=== PATIENT | female | born 1980 | race Two or more races ===

== ENCOUNTER 2024-10-11 04:03 | Emergency (ER) | payer MEDICAID, SELFPAY ==
[2024-10-11 04:04] VITALS: BMI 24.7
[2024-10-11 04:09] VITALS: BP 109/75; PULSE 79; RESP 18; TEMP 36.4; O2SAT 95
--- NOTE | 2024-10-11 04:19 | PD.EDRME ---
Rapid Medical Screening Exam [facility] Arrival date/time: 10/11/24 04:03 44F with no significant PMH presents to ED with 1 hour of generalized itching, rash, and some facial swelling. Patient took ibuprofen and woke up like this, though she had had ibuprofen before. Patient denies new meds, foods, or hygiene products. Chief Complaint: Allergic Reaction Vital signs: Vital Signs Temperature 97.5 F 10/11/24 04:09 Pulse Rate 79 10/11/24 04:09 Respiratory Rate 18 10/11/24 04:09 Blood Pressure 109/75 10/11/24 04:09 Pulse Oximetry (%) 95 10/11/24 04:09 Oxygen Delivery Method Room Air 10/11/24 04:09
[2024-10-11] MEDS: SODIUM CHLORIDE 0.9% 1000 ML 1,000 ML 999 ML IV (04:46)
[2024-10-11] MEDS: MethylPREDNISolone SOD SUCC 62.5 MG/ML 2ML VIAL 125 MG IVP (04:47)
[2024-10-11] MEDS: FAMOTIDINE INJ 10 MG/ML VIAL 2 ML 20 MG IVP (04:47)
[2024-10-11] MEDS: DiphenhydrAMINE INJ 50 MG/ML VIAL IVP (04:48)
[2024-10-11 04:54] VITALS: BP 126/84; BP 131/88; PULSE 63; RESP 17; O2SAT 100
[2024-10-11 04:58] VITALS: PULSE 63
[2024-10-11 05:00] VITALS: BP 141/82; PULSE 68; RESP 14; O2SAT 100
--- NOTE | 2024-10-11 05:02 | EDNOTE_ITS ---
ED Allergic Reaction RME/HPI General Chief complaint: Allergic Reaction Stated complaint: ALLERGIC REACTION Arrival date/time: 10/11/24 04:03 44F with no significant PMH presents to ED with 1 hour of generalized itching, rash, and some facial swelling. Patient took ibuprofen and woke up like this, though she had had ibuprofen before. Patient denies new meds, foods, or hygiene products. Patient doesn't take any routine meds including GIANLUCA-inhibitors. Limitations: no limitations Related Data Home Medications ?Medication ?Instructions ?Recorded ?Confirmed ferrous sulfate 325 mg (65 mg 325 mg PO BIDWM #0 tabs 03/21/14 iron) tablet (Feosol) Previous Rx's ?Medication ?Instructions ?Recorded diphenhydramine HCl 25 mg capsule 25 mg PO Q8H PRN allergic symptoms 10/11/24 (Benadryl) #30 caps prednisone 10 mg tablet 30 mg (3 x 10 mg) PO BID 3 days 10/11/24 #18 tabs Allergies Allergy/AdvReac Type Severity Reaction Status Date / Time NKA* Allergy Uncoded 03/20/14 10:42 Review of Systems Review of Systems Systems Reviewed: All systems reviewed, normal except as documented Constitutional Constitutional: Reports system reviewed and no additional complaints, except as documented, Denies fever(s) and Denies headache(s) ENT Ears, Nose, Mouth, and Throat: Reports as per HPI, Denies disequilibrium, Denies headache(s) and Reports throat swelling Cardiovascular Cardiovascular: Reports system reviewed and no additional complaints, except as documented, Denies chest pain and Denies dyspnea Respiratory Respiratory: Reports system reviewed and no additional complaints, except as documented, Denies cough and Denies dyspnea Gastrointestinal Gastrointestinal: Reports system reviewed and no additional complaints, except as documented, Denies abdominal pain, Denies nausea and Denies vomiting Integumentary/Breasts Skin/Breast: Reports as per HPI, Reports pruritus and Reports rash Neurologic Neurologic: Reports system reviewed and no additional complaints, except as documented, Denies confusion, Denies disequilibrium and Denies headache(s) Psychiatric Psychiatric: Denies confusion Allergic/Immunologic Allergic/Immunologic: Reports throat swelling Past Medical History Social History SMOKING STATUS: Never smoker ED Exam General Limitations: Present no limitations General appearance: Present alert and in no apparent distress Head Head exam: Present atraumatic Eye Eye exam: Present normal appearance, PERRL and EOMI ENT ENT exam: Present mucous membranes moist Expanded ENT Exam Mouth exam: Present tongue swelling (mild) Neck Neck exam: Present normal inspection, full ROM and trachea midline Chest Chest inspection: Present normal inspection and symmetric chest wall rise Respiratory Respiratory exam: Present normal lung sounds bilaterally Cardiovascular Cardiovascular exam: Present regular rate, normal rhythm and normal heart sounds Abdominal Exam Abdominal exam: Present soft and normal bowel sounds Extremities Exam Extremities exam: Present normal inspection and full ROM Back Exam Back exam: Present normal inspection and full ROM Neurological Exam Neurological exam: Present alert, oriented X3 and CN II-XII intact Psychiatric Psychiatric exam: Present normal affect and normal mood Skin Skin exam: Present warm, dry, intact and normal color Course Quality Measures none Orders Category Date Time Status Mixer Operator Raw Salt Q4H START 00 Care 10/11/24 04:21 Completed Insert IV NOW Care 10/11/24 04:18 Completed DiphenhydrAMINE INJ [Benadryl Inj] Med 10/11/24 04:18 Discontinued 50 mg IVP X1 ONE Famotidine Inj [Pepcid Inj] Med 10/11/24 04:18 Discontinued 20 mg IVP X1 ONE MethylPREDNISolone.* [SoluMEDROL Inj] Med 10/11/24 04:18 Discontinued 125 mg IVP X1 ONE Sodium Chloride 0.9% 1000 ml [Ns] 1,000 ml Med 10/11/24 04:18 Discontinued IV 999 mls/hr Vital Signs Vital signs: Vital Signs Temperature 97.5 F 10/11/24 04:09 Pulse Rate 79 10/11/24 04:09 Respiratory Rate 18 10/11/24 04:09 Blood Pressure 109/75 10/11/24 04:09 Pulse Oximetry (%) 95 10/11/24 04:09 Oxygen Delivery Method Room Air 10/11/24 04:09 O2 at 95% on RA and WNLs Allergic Reaction MDM Narrative MDM Narrative:: 44F with no significant PMH presents to ED with 1 hour of generalized itching, rash, and some facial swelling. Patient took ibuprofen and woke up like this, though she had had ibuprofen before. Patient denies new meds, foods, or hygiene products. Patient doesn't take any routine meds including GIANLUCA-inhibitors. Physical exam reveals generalized urticarial rash, but clear lungs. Mild swelling of tongue, but clear oropharynx. Patient WOB normal. Patient is able to drink water without difficulty. Patient is afebrile, calm, and alert. Meds given. Upon reassessment, patient is feeling better. Care transferred to colleague. Patient discharged without further intervention by colleague. Patient data External records reviewed:: [facility] previous records Clinical information provided by:: patient Social determinants that could affect healthcare access:: none Patient has the following chronic illnesses:: none How is presenting disease/condition affected by chronic disease/condition?: no chronic disease Evaluation data The following diagnostics were reviewed and interpreted by me:: other (specify) (none) Lab and/or radiology exams considered but not ordered:: not ordered Interpretation Summary: n/a Medications / Prescriptions Medications or Prescriptions considered but not ordered:: ordered Medication administrations:: Medication Administration History Discontinued Medications Diphenhydramine HCl (Diphenhydramine Inj 50 Mg/Ml Vial) 50 mg IVP X1 ONE Stop: 10/11/24 04:19 Last Admin: 10/11/24 04:48 Dose: 50 mg Documented By: ISABELA Famotidine (Famotidine Inj 10 Mg/Ml Vial 2 Ml) 20 mg IVP X1 ONE Stop: 10/11/24 04:19 Last Admin: 10/11/24 04:47 Dose: 20 mg Documented By: ISABELA Sodium Chloride (Ns) 1,000 mls @ 999 mls/hr IV .Q1H1M ONE Stop: 10/11/24 05:18 Last Infusion: 10/11/24 06:00 Dose: Infused Documented By: Admin: 10/11/24 04:46 Dose: 999 mls/hr Documented By: ISABELA Methylprednisolone Sodium Succinate (Methylprednisolone Sod Succ 62.5 Mg/Ml 2ml Vial) 125 mg IVP X1 ONE Stop: 10/11/24 04:19 Last Admin: 10/11/24 04:47 Dose: 125 mg Documented By: ISABELA above Consultations Consultation(s) initiated? (list below): No Diagnosis Differential Diagnosis allergic reaction: anaphylaxis, allergic reaction, angioedema, contact dermatitis, adverse reaction to drug, viral enanthem and urticaria Most likely diagnosis given after review of the tests above:: allergic reaction Admission Indicated Admission indicated?: not indicated Admission Request Was there a request for admission?: No Disposition Plan Disposition Plan: Discharge Discharge Attestation Discharge Attestation: The patient and all family members were given an opportunity to ask questions and understood the discharge instructions. Discharge instructions specifically effects, indications for sooner follow up or return to the emergency department, and the expected course of current diagnosis. Patient condition: Stable Discharge Plan Plan Patient Disposition: HOME (Self Care) Disposition Comment: Stable Prescriptions/Referrals Prescriptions/Med Rec: New prednisone 10 mg tablet 30 mg PO BID 3 Days Qty: 18 0RF diphenhydramine HCl [Benadryl] 25 mg capsule 25 mg PO Q8H PRN (Reason: allergic symptoms) Qty: 30 0RF No Action ferrous sulfate [Feosol] 1 TAB tablet 325 mg PO BIDWM Qty: 0 Problem List Clinical Impression: Allergic reaction Patient/Caregiver Discharge Instructions Education Materials: ED Medicine Reaction: Allergic Additional Instructions: Please follow up with your primary care doctor in the next 24-48hrs for any worsening symptoms return here immediately Print Language: Niuean Stand Alone Forms: [employer] Award Info., Patient Portal Info Letter PA/NAIL TECHNICIAN TEACHER Supervising Physician PA/NAIL TECHNICIAN TEACHER Supervising Physician: Dr Castro
[2024-10-11 06:00] VITALS: BP 115/82; PULSE 74; RESP 16; O2SAT 100
[2024-10-11 06:40] VITALS: BP 105/74; PULSE 82; RESP 20; O2SAT 98
== END 2024-10-11 07:10 | disposition home or self-care (01) ==
LOC: SERX 06:48
PROVIDERS: Emergency Provider Emergency Medicine
DX: L50.0 Allergic urticaria (principal); R22.0 Localized swelling, mass and lump, head
CPT/HCPCS: 96361; 96374; 96375; 99284; J1200; J2919; J3490; J7030

== ENCOUNTER 2024-11-13 08:49 | Emergency (ER) | payer MEDICAID, SELFPAY ==
[2024-11-13 08:50] VITALS: BMI 25.7
[2024-11-13 09:16] VITALS: BP 117/60; PULSE 66; RESP 18; TEMP 36.9; O2SAT 98; BMI 25.7
--- NOTE | 2024-11-13 09:31 | PD.EDRME ---
Rapid Medical Screening Exam [facility] Arrival date/time: 11/13/24 08:49 44-year-old female presents emerged department with complaints of left eye pain x 2 weeks Chief Complaint: Eye Problems Vital signs: Vital Signs Temperature 98.5 F 11/13/24 09:16 Pulse Rate 66 11/13/24 09:16 Respiratory Rate 18 11/13/24 09:16 Blood Pressure 117/60 11/13/24 09:16 Pulse Oximetry (%) 98 11/13/24 09:16 Oxygen Delivery Method Room Air 11/13/24 09:16
[2024-11-13 10:31] VITALS: BP 118/79; PULSE 56; RESP 15; TEMP 36.7; O2SAT 99
--- NOTE | 2024-11-13 10:33 | EKG_ITS ---
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
[2024-11-13 12:33] VITALS: BP 117/75; PULSE 57; RESP 16; TEMP 36.7; O2SAT 97
[2024-11-13] MEDS: KETOROLAC INJ 60 MG/2 ML VIAL 30 MG IM (12:37)
[2024-11-13] MEDS: TETRACAINE PF OP SOL 0.5% 4 ML DRPETTE 1 DROP LEFT EYE (12:39)
[2024-11-13] MEDS: FLUORESCEIN SOD 1 MG STRP LEFT EYE (12:39)
[2024-11-13 14:03] LABS: C-Reactive Protein < 0.4 mg/dL (0.0-0.9)
[2024-11-13 14:06] VITALS: BP 114/75; PULSE 52; RESP 96; O2SAT 96
--- NOTE | 2024-11-13 14:20 | PD.EDEYE ---
ED Eye Problem RME/HPI General Chief complaint: Eye Problems Stated complaint: LEFT EYE PAIN WITH REDNESS AND HEADACHE Arrival date/time: 11/13/24 08:49 RME / HPI RME / HPI Narrative: 11/13/24 08:49 44-year-old female presents emerged department with complaints of left eye pain x [address] FELI SORENSON ED EVALUATION 44 year old female presents to the ED for evaluation of left eye pain and redness beginning 2 weeks ago. Pain described as throbbing in sensation that has remained constant since onset. Accompanied by left temporal pain, photophobia, and blurred vision in the left eye. Reportedly consulted her PCP who advised she sees an hot stamp operator which she did last week. States she was prescribed Tobradex eyes drop which she has used without improvement. Denies any known injuries/trauma, or discharge. Related Data Home Medications ?Medication ?Instructions ?Recorded ?Confirmed ferrous sulfate 325 mg (65 mg 325 mg PO BIDWM #0 tabs 03/21/14 iron) tablet (Feosol) Previous Rx's ?Medication ?Instructions ?Recorded diphenhydramine HCl 25 mg capsule 25 mg PO Q8H PRN allergic symptoms 10/11/24 (Benadryl) #30 caps prednisone 20 mg tablet 60 mg PO QDAY #2 tabs 11/13/24 Allergies Allergy/AdvReac Type Severity Reaction Status Date / Time No Known Allergies Allergy Verified 11/13/24 08:54 Review of Systems Review of Systems Narrative Review of Systems: Gen: No fever, no chills EYES: No discharge, +visual changes, + pain, +redness HEENT: +left temporal pain. No ear pain, no congestion, no sore throat PULM: no shortness of breath, no cough, no congestion CV: No chest pain, no palpitations, no chest tightness GI: No nausea, no vomiting, no diarrhea, no pain, no constipation : No frequency, no urgency,? no dysuria Musc/skel: No joint pain, no back pain Skin: No rash, no ecchymosis, no lesions Neuro: No weakness, + headache Past Medical History Past Medical History CARDIAC: Negative Congestive Heart Failure RESPIRATORY: Negative Chronic Obstructive Pulmonary Disease (COPD) GENITOURINARY: Negative Renal Disease ENDOCRINE: Positive Hypothyroidism; Negative Diabetes Mellitus Type 1 or Diabetes Mellitus Type 2 Social History SMOKING STATUS: Never smoker ED Exam Narrative Physical exam: GENERAL APPEARANCE: AxOx4, no obvious distress, nontoxic appearing HEENT: NC, AT. The left latter-day is exquisitely tender, couldn't discern temporal pulse on either left or right. MMM. EOMI, clear conjunctiva, oropharynx clear. NECK: Supple without lymphadenopathy. No stiffness or restricted ROM. HEART: Normal rate and regular rhythm. LUNGS: CTAB, moving air well. EXTREMITIES: Without cyanosis, clubbing or edema. MUSCULOSKELETAL: FROM of all major joints, no chest tenderness NEUROLOGICAL: Grossly nonfocal. Alert and oriented, moving all 4 extremities. CN not formally tested but appear grossly intact. Skin: Warm and dry without any rash. OS OD Visual acuity 20/100 20/50 Pupil Equal, round, sluggish to light Equal, round, reactive to light EOM Intact Intact Visual field x4 x4 Inspection Erythema to the lateral aspect of the sclera Normal Slit-lamp No cells, no flares, no signs of anterior chamber inflammation Normal exam IOP 17 14 Fluorescein No uptake No uptake Fundo No ulcer, no corneal abrasion No abnormal findings Course Quality Measures none Orders Category Date Time Status EKG (ED ONLY) *Do not use* NOW Care 11/13/24 10:33 Completed Slit Lamp to Bedside X1 Care 11/13/24 11:27 Completed Tonometer to Bedside X1 Care 11/13/24 11:29 Completed Visual Acuity NOW Care 11/13/24 12:18 Completed Jules Lamp to Bedside X1 Care 11/13/24 09:31 Completed EKG (ED Only) Stat Exams 11/13/24 10:33 Draft CRP [C-Reactive Protein] Stat Lab 11/13/24 13:03 Completed ESR [Sed Rate (ESR)] Stat Lab 11/13/24 13:03 Completed Fluorescein Sodium [[id number]] Med 11/13/24 09:31 Discontinued 1 mg LEFT EYE X1 ONE Ketorolac Inj [Toradol Inj] Med 11/13/24 12:18 Discontinued 30 mg IM X1 ONE TETRACAINE Op Charisse 0.5% [Pontocaine Op Charisse 0.5%] Med 11/13/24 09:31 Discontinued 1 drop LEFT EYE X1 ONE predniSONE Med 11/13/24 15:56 Discontinued 60 mg PO X1 ONE Vital Signs Vital signs: Vital Signs Temperature 98.5 F 11/13/24 09:16 Pulse Rate 66 0203/25 09:16 Respiratory Rate 18 11/13/24 09:16 Blood Pressure 117/60 11/13/24 09:16 Pulse Oximetry (%) 98 11/13/24 09:16 Oxygen Delivery Method Room Air 11/13/24 09:16 Pulse ox is 98% on room air which is adequate. Eye MDM Narrative MDM Narrative:: Luz Camarillo am scribing for and in the presence of Dr. Kim. Patient data External records reviewed:: [facility] previous records (I reviewed ED visit on 10/11/2024) Clinical information provided by:: patient Social determinants that could affect healthcare access:: none Patient has the following chronic illnesses:: None How is presenting disease/condition affected by chronic disease/condition?: no chronic disease Evaluation data The following diagnostics were reviewed and interpreted by me:: EKG tracing(s) (Sinus bradycardia, rate 48, no acute ST or T-wave changes, no STEMI. ) Lab and/or radiology exams considered but not ordered:: None Interpretation Summary: As noted above Medications / Prescriptions Medications or Prescriptions considered but not ordered:: None Medication administrations:: Medication Administration History Discontinued Medications Fluorescein Sodium (Fluorescein Sod 1 Mg Strp) 1 mg LEFT EYE X1 ONE Stop: 11/13/24 09:32 Last Admin: 11/13/24 12:39 Dose: 1 mg Documented By: SHARRI Comments: admin by Dr Kim Ketorolac Tromethamine (Ketorolac Inj 60 Mg/2 Ml Vial) 30 mg IM X1 ONE Stop: 11/13/24 12:19 Last Admin: 11/13/24 12:37 Dose: 30 mg Documented By: SHARRI Prednisone (Prednisone 20 Mg Tablet) 60 mg PO X1 ONE Stop: 11/13/24 15:57 Last Admin: 11/13/24 16:15 Dose: 60 mg Documented By: SHARRI Tetracaine HCl (Tetracaine Pf Op Charisse 0.5% 4 Ml Drpette) 1 drop LEFT EYE X1 ONE Stop: 11/13/24 09:32 Last Admin: 11/13/24 12:39 Dose: 1 drop Documented By: SHARRI Comments: admin by Dr Kim See above Consultations Consultation(s) initiated? (list below): No Diagnosis Eye Problem Differential Diagnosis: corneal abrasion, conjunctivitis, acute iritis, hyphema, periorbital cellulitis, subconjunctival hemorrhage, glaucoma and corneal ulcer Most likely diagnosis given after review of the tests above:: Headache Acute eyepain Admission Indicated Admission indicated?: not indicated Admission Request Was there a request for admission?: No Disposition Plan Disposition Plan: Discharge Discharge Attestation Discharge Attestation: The patient and all family members were given an opportunity to ask questions and understood the discharge instructions. Discharge instructions specifically effects, indications for sooner follow up or return to the emergency department, and the expected course of current diagnosis. Patient condition: Stable Discharge Plan Plan Patient Disposition: HOME (Self Care) Prescriptions/Referrals Prescriptions/Med Rec: New prednisone 20 mg tablet 60 mg PO QDAY Qty: 2 0RF Taper: Prednisone Taper 60 mg DAILY for 2 Days and 0 Hour No Action ferrous sulfate [Feosol] 1 TAB tablet 325 mg PO BIDWM Qty: 0 diphenhydramine HCl [Benadryl] 25 mg capsule 25 mg PO Q8H PRN (Reason: allergic symptoms) Qty: 30 0RF Referrals: Williams Richmond MD [Primary Care Provider] - In 1 week Problem List Clinical Impression: Headache, Acute eye pain Patient/Caregiver Discharge Instructions Education Materials: Self-Care for Headaches Additional Instructions: La receta se envi? a la farmacia, rec?era hoy y comience lennon primera dosis ma?darrius por la ma?darrius. ?fatoumata le entregar? los medicamentos para danielle ma?darrius sylvia y el d?a siguiente mi?rcoles. Regrese al departamento de emergencias el mi?rcoles para que el Dr. Kim lo yue y lo revise nuevamente. Si kevin s?ntomas empeoran o lennon visi?n empeora antes de izaiah fecha, regrese al departamento de emergencias de inmediato. Print Language: Turkish Stand Alone Forms: [employer] Award Info., Patient Portal Info Letter
[2024-11-13 15:11] LABS: Sed Rate (ESR) 41 mm/hr (0-20)
[2024-11-13] MEDS: predniSONE 20 MG TABLET 60 MG PO (16:15)
[2024-11-13 16:17] VITALS: BP 115/71; PULSE 60; RESP 14; TEMP 36.7; O2SAT 97
[2024-11-13 17:58] VITALS: BP 114/82; PULSE 58; RESP 20
== END 2024-11-13 17:58 | disposition home or self-care (01) ==
PROVIDERS: Emergency Provider Emergency Medicine; PCP Family Medicine
DX: H57.12 Ocular pain, left eye (principal); R51.9 Headache, unspecified; R00.1 Bradycardia, unspecified
CPT/HCPCS: 36415; 85652; 86140; 93005; 96372; 99283; J1885; J7512

== ENCOUNTER 2025-05-13 07:15 | Emergency (ER) | payer MEDICAID, SELFPAY ==
[2025-05-13 07:18] VITALS: BMI 23.0
[2025-05-13 07:34] VITALS: BP 107/72; PULSE 60; RESP 18; TEMP 36.9; O2SAT 98
--- NOTE | 2025-05-13 07:36 | EKG_ITS ---
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
--- NOTE | 2025-05-13 07:42 | XR_ITS ---
Examination: PA lateral chest 2 views Technique: Upright PA lateral chest 2 views Date and time: April 12, 2025, 0806 hrs., Comparison September 20, 2009. Indications: Chest pain 15 days. Findings: Normal heart size Mild increased markings at the right lung base No pulmonary edema. The osseous structures are intact Impression: Atelectasis versus early pneumonia at the right lung base, the appearance should be clinically correlated.
--- NOTE | 2025-05-13 08:23 | PD.EDCHEST ---
ED Chest Pain RME/HPI General Chief Complaint: Chest Pain Stated Complaint: L) SIDE CHEST PAIN, HEADACHE X 15 DAYS Time Seen by Provider: 05/13/25 07:24 Source: patient Arrival date/time: 05/13/25 07:15 45-year-old female with no known medical history presents to the emergency room with a chief complaint of left-sided sternal chest pain and a headache x 15 days Mode of arrival: ambulatory Limitations: no limitations Related Data Home Medications ?Medication ?Instructions ?Recorded ?Confirmed ferrous sulfate 325 mg (65 mg 325 mg PO BIDWM #0 tabs 03/21/14 iron) tablet (Feosol) Previous Rx's ?Medication ?Instructions ?Recorded diphenhydramine HCl 25 mg capsule 25 mg PO Q8H PRN allergic symptoms 10/11/24 (Benadryl) #30 caps prednisone 20 mg tablet 60 mg PO QDAY #2 tabs 11/13/24 doxycycline monohydrate 100 mg 100 mg PO BID 7 days #14 caps 05/13/25 capsule Allergies Allergy/AdvReac Type Severity Reaction Status Date / Time No Known Allergies Allergy Verified 05/13/25 07:27 Review of Systems Review of Systems Systems Reviewed: All systems reviewed, normal except as documented Constitutional Constitutional: Reports system reviewed and no additional complaints, except as documented, Denies fatigue, Denies fever(s), Denies headache(s) and Denies weakness Eyes Eyes: Reports system reviewed and no additional complaints, except as documented, Denies blurry vision and Denies change in vision ENT Ears, Nose, Mouth, and Throat: Reports system reviewed and no additional complaints, except as documented, Denies otalgia, Denies headache(s), Denies nasal congestion, Denies throat swelling and Denies vertigo Cardiovascular Cardiovascular: Reports system reviewed and no additional complaints, except as documented, Reports chest pain, Denies dyspnea and Denies dyspnea on exertion Respiratory Respiratory: Reports system reviewed and no additional complaints, except as documented, Denies chest congestion, Denies cough, Denies dyspnea, Denies dyspnea on exertion and Denies wheezing Gastrointestinal Gastrointestinal: Reports system reviewed and no additional complaints, except as documented, Denies abdominal pain, Denies cramping, Denies nausea and Denies vomiting Genitourinary Genitourinary: Reports system reviewed and no additional complaints, except as documented Musculoskeletal Musculoskeletal: Reports system reviewed and no additional complaints, except as documented and Denies back pain Integumentary/Breasts Skin/Breast: Reports system reviewed and no additional complaints, except as documented and Denies wounds Neurologic Neurologic: Reports system reviewed and no additional complaints, except as documented, Denies confusion, Denies headache(s), Denies lack of coordination, Denies vertigo and Denies weakness Psychiatric Psychiatric: Reports system reviewed and no additional complaints, except as documented, Denies anxiety, Denies confusion, Denies depression, Denies paranoia, Denies suicidal ideation and Denies tactile hallucinations Endocrine Endocrine: Reports system reviewed and no additional complaints, except as documented and Denies fatigue Hematologic/Lymphatic Hematologic/Lymphatic: Reports system reviewed and no additional complaints, except as documented and Denies lymphadenopathy Allergic/Immunologic Allergic/Immunologic: Reports system reviewed and no additional complaints, except as documented, Denies throat swelling, Denies urticaria and Denies wheezing ED Exam General Limitations: Present no limitations General appearance: Present alert and in no apparent distress Head Head exam: Present atraumatic Eye Eye exam: Present normal appearance, PERRL and EOMI ENT ENT exam: Present normal exam, normal oropharynx and mucous membranes moist Neck Neck exam: Present normal inspection, full ROM and trachea midline Chest Chest inspection: Present normal inspection and symmetric chest wall rise Respiratory Respiratory exam: Present normal lung sounds bilaterally; Absent respiratory distress, wheezes, stridor, accessory muscle use or prolonged expiratory phase Cardiovascular Cardiovascular exam: Present regular rate, normal rhythm, normal heart sounds, +S1 and +S2; Absent bradycardia, tachycardia or irregular rhythm Abdominal Exam Abdominal exam: Present soft and normal bowel sounds; Absent distention, tenderness or guarding Extremities Exam Extremities exam: Present normal inspection and full ROM Back Exam Back exam: Present normal inspection and full ROM Neurological Exam Neurological exam: Present alert, oriented X3 and CN II-XII intact Psychiatric Psychiatric exam: Present normal affect and normal mood Skin Skin exam: Present warm, dry, intact and normal color Course Quality Measures none Orders Category Date Time Status EKG (ED ONLY) *Do not use* NOW Care 05/13/25 07:36 Completed EKG (ED Only) Stat Exams 05/13/25 07:36 Draft XR chest 2V Stat Exams 05/13/25 07:42 Completed B-Type Natriuretic Peptide Stat Lab 05/13/25 08:45 Completed CBC Stat Lab 08/03/25 08:45 Completed Comprehensive Metabolic Panel Stat Lab 05/13/25 08:45 Completed Troponin I Stat Lab 05/13/25 08:45 Completed Vital Signs Vital signs: Vital Signs Temperature 98.5 F 05/13/25 07:34 Pulse Rate 60 05/13/25 07:34 Respiratory Rate 18 05/13/25 07:34 Blood Pressure 107/72 05/13/25 07:34 Pulse Oximetry (%) 98 05/13/25 07:34 Oxygen Delivery Method Room Air 05/13/25 07:34 O2 saturation 98% within normal limits Chest Pain MDM Narrative MDM Narrative:: 45-year-old female with no known medical history presents to the emergency room with a chief complaint of left-sided sternal chest pain and a headache x 15 days Patient is hemodynamically stable and in no apparent distress Physical examination shows clear bilateral lung sounds there is no wheezing stridor or any abnormal breath sounds Patient has a strong and regular rhythm S1 and S2 noted. No JVD noticed EKG shows sinus bradycardia. Prior to discharge a posterior show 60 bpm X-ray shows early pneumonia antibiotics were given to the patient Patient was discharged and educated to follow-up with primary care provider in the next 24 to 48 hours and return to the emergency room for any evidence of worsening signs or symptoms Patient data External records reviewed:: [facility] previous records Clinical information provided by:: patient Social determinants that could affect healthcare access:: none Patient has the following chronic illnesses:: No chronic illness How is presenting disease/condition affected by chronic disease/condition?: no chronic disease Evaluation data The following diagnostics were reviewed and interpreted by me:: lab results and radiology exam(s) Lab and/or radiology exams considered but not ordered:: Labs and radiology exams considered in order Interpretation Summary: Chest [id number]: Normal heart size Mild increased markings at the right lung base No pulmonary edema. The osseous structures are intact Impression: Atelectasis versus early pneumonia at the right lung base, the appearance should be clinically correlated. Medications / Prescriptions Medications or Prescriptions considered but not ordered:: Medication given Medication administrations:: Medication not given Consultations Consultation(s) initiated? (list below): No Diagnosis Chest Pain Differential Diagnosis: stable angina, atypical chest pain, st elevation myocardial infarction, costochondritis, chest pain and other (Community-acquired pneumonia) Most likely diagnosis given after review of the tests above:: Community-acquired pneumonia Admission Indicated Admission indicated?: not indicated Admission Request Was there a request for admission?: No Disposition Plan Disposition Plan: Discharge Discharge Attestation Discharge Attestation: The patient and all family members were given an opportunity to ask questions and understood the discharge instructions. Discharge instructions specifically effects, indications for sooner follow up or return to the emergency department, and the expected course of current diagnosis. Patient condition: Stable Discharge Plan Plan Patient Disposition: HOME (Self Care) Discharge Disposition comment: Stable Prescriptions/Referrals Prescriptions/Med Rec: New doxycycline monohydrate 100 mg capsule 100 mg PO BID 7 Days Qty: 14 0RF No Action ferrous sulfate [Feosol] 1 TAB tablet 325 mg PO BIDWM Qty: 0 diphenhydramine HCl [Benadryl] 25 mg capsule 25 mg PO Q8H PRN (Reason: allergic symptoms) Qty: 30 0RF prednisone 20 mg tablet 60 mg PO QDAY Qty: 2 0RF Taper: Prednisone Taper 60 mg DAILY for 2 Days and 0 Hour Referrals: Linda Poon FNP-C [Primary Care Provider] - In 1 week Problem List Clinical Impression: Community acquired pneumonia Patient/Caregiver Discharge Instructions Education Materials: ED Pneumonia (Adult) Additional Instructions: Por favor, consulte con lennon m?dico de cabecera en las pr?ximas 24 a 48 horas. Lennon radiograf?a de t?rax mostr? neumon?a. Se enviaron antibi?ticos a lennon farmacia; por favor, rec?jalos y t?melos seg?n lo indicado. Lennon examen card?aco se encontraba dentro de los l?mites normales. Ante cualquier evidencia de empeoramiento de los signos o s?ntomas, regrese a urgencias de inmediato. Print Language: Armenian Stand Alone Forms: [employer] Award Info., Patient Portal Info Letter PA/[employer] HEAVY Supervising Physician LEVON/MARTHA Supervising Physician: Dr. Baker
[2025-05-13 09:15] LABS: Basophils # (Auto) 0.0 Thou/mm3 (0.0-0.2); Basophils % (Auto) 1 % (0-2.5); Eosinophils # (Auto) 0.3 Thou/mm3 (0.0-0.5); Eosinophils % (Auto) 3 % (0-10); Hematocrit 32.0 % (36.0-46.0); Hemoglobin 9.9 g/dL (12.0-16.0); Immature Granulocytes Auto 0.02 Thou/mm3 (0.00-0.00); Lymphocytes # (Auto) 2.9 Thou/mm3 (1.0-4.8); Lymphocytes % (Auto) 39 % (10-50); Mean Corpuscular HGB Conc 30.9 g/dl (31.0-37.0); Mean Corpuscular Hemoglobin 23.6 pg (25.0-35.0); Mean Corpuscular Volume 76 fL (80-100); Monocytes # (Auto) 0.7 Thou/mm3 (0.0-0.8); Monocytes % (Auto) 9 % (0-12); Neutrophils # (Auto) 3.6 Thou/mm3 (1.8-7.7); Neutrophils % (Auto) 48 % (37-80); Nucleated Red Blood Cell # 0.00 Thou/mm3 (0.00-0.00); Nucleated Red Blood Cell % 0 /100 WBC (0); Platelet Count 271 Thou/mm3 (140-440); RDW Standard Deviation 44.1 fL (36.4-46.3); Red Blood Count 4.20 Miln/mm3 (4.00-5.20); White Blood Count 7.4 Thou/mm3 (3.6-11.0)
[2025-05-13 09:29] LABS: Alanine Aminotransferase 17 U/L (10-49); Albumin, Serum 4.1 gm/dL (3.5-5.0); Albumin/Globulin Ratio 1.3 (1.2-2.2); Alkaline Phosphatase 78 U/L (46-116); Anion Gap 8 (7-16); Aspartate Amino Transferase 26 U/L (0-34); BUN/Creatinine Ratio 20 Ratio (12-20); Bilirubin,Total 0.7 mg/dL (0.3-1.2); Blood Urea Nitrogen 12 mg/dL (9-23); Calcium 8.5 mg/dL (8.3-10.6); Calcium (Corrected) 8.5 mg/dL (8.5-10.1); Carbon Dioxide 26.2 mMol/L (20.0-31.0); Chloride 107 mMol/L (98-107); Creatinine (Component) 0.6 mg/dL (0.6-1.3); Estimated Creatinine Clearance 96.9 mL/min (>60); Globulin 3.1 gm/dL (2.3-3.5); Glucose 92 mg/dL (74-106); Osmolality,Calculated 280 (275-295); Potassium 4.0 mMol/L (3.4-5.1); Sodium 141 mMol/L (136-145); Total Protein 7.2 gm/dL (5.7-8.2); Troponin I < 0.002 ng/mL (0.0-0.045); eGFR > 60 See Note
[2025-05-13 09:41] LABS: B-Type Natriuretic Peptide 25 pg/mL (0-100)
== END 2025-05-13 10:38 | disposition home or self-care (01) ==
PROVIDERS: Emergency Provider Nurse Practitioner Family
DX: J18.9 Pneumonia, unspecified organism (principal); R00.1 Bradycardia, unspecified; I49.8 Other specified cardiac arrhythmias; I45.10 Unspecified right bundle-branch block
CPT/HCPCS: 36415; 71046; 80053; 83880; 84484; 85025; 93005; 99283